=== PATIENT | male | born 1940 ===

== ENCOUNTER → 2025-01-11 11:00 | Outpatient (REF) | payer OTHER, SELFPAY | LOC: HWRAD 11:00 | PROVIDERS: ATTENDING PHYSICIAN Internal Medicine Interventional Cardiology; FAMILY PHYSICIAN Family Medicine | DX: I77.810 Thoracic aortic ectasia (principal) | CPT/HCPCS: 71250 ==

== ENCOUNTER 2025-05-29 06:03 | Day surgery (SDC) | payer OTHER, SELFPAY ==
--- NOTE | 2025-05-10 16:28 | CM ---
Demographics: lives with
Living situation: , one level home
Support Person Post Operatively:
History of
VN: NO
SNF: No
Outpatient: SILVERIO Gutierrez
Has patient purchased required equipment: walker, encouraged patient to review [employer] D[employer] list
PCP: Active
Pharmacy: [facility]
Post Operative Discharge Plan: Outpatient PT
[2025-05-14 14:05] VITALS: BMI 26.6
[2025-05-14 14:37] LABS: Hematocrit 38.9 % (39.0-52.0); Hemoglobin 12.6 g/dL (13.0-18.0); Mean Corp Hgb Conc. 32.4 g/dL (33.0-37.0); Mean Corpuscular Volume 97.0 fL (80.0-94.0); Platelet Count 152 10^3/uL (130-400); Red Cell Dist. Width 14.0 % (11.5-14.5)
[2025-05-14 15:31] LABS: ALT (SGPT) 13 U/L (0-50); AST (SGOT) 24 U/L (17-59); Albumin 4.1 g/dl (3.5-5.0); Alkaline Phosphatase 54 U/L (38-126); Blood Urea Nitrogen 22 mg/dl (9-20); Calcium 8.8 mg/dl (8.4-10.2); Carbon Dioxide 25 mmol/L (22-30); Chloride 110 mmol/L (98-107); Estimated Creatinine Clearance 54 ml/min; Glucose 84 mg/dl (70-99); Potassium 5.2 mmol/L (3.5-5.1); Sodium 142 mmol/L (135-145); Total Protein 6.5 g/dl (6.3-8.2); eGFR > 60.00
[2025-05-14 18:16] VITALS: BMI 26.6
[2025-05-15 11:06] LABS: Glycohemoglobin (HgbA1c) 5.2 % (4.0-5.6)
--- NOTE | 2025-05-27 12:36 | VNURNOTE ---
Chart reviewed. called patient to review [facility] joint protocol. No answer, left message.
[2025-05-29] VITALS (14 sets, daily range): BP systolic 101–180; BP diastolic 53–91; PULSE 59; O2SAT 98
[2025-05-29] MEDS: TYLENOL 650 MG PO (07:18)
[2025-05-29] MEDS: CELEBREX 200 MG PO (07:18)
[2025-05-29] MEDS: NORMOSOL-R/PLASMALYTE-A 1000 IV (07:20)
--- NOTE | 2025-05-29 07:51 | W.DS.TRANS ---
DC Summary - [employer]
-
Discharge Instructions:
Sleep Apnea Risk Intermediate
Discharge Diagnosis/Procedures L HOLLIE Borges 05/29/25-SDS
Diet As tolerated
Activity With Walker
Driving Restrictions No driving
Bathing Restrictions OK to Shower
Other Services PT
Instructions:
Stand-Alone Forms: SDS Total Hip and Knee D/C
Changes to Home Medications: Yes
Discharge Medications:
DC Medications w/original date entered in [facility]
Dr. Robles - Gut,Brain & Sync 1 cap PO QPM 05/13/25
Held on 05/29/25. Instructions: Resume on 06/06/25.
loratadine 10 mg tablet (Claritin) 10 mg PO DAILY Allergies 05/13/25
dexamethasone 4 mg tablet 4 mg PO BID inflammation #6 tabs 05/14/25
famotidine 20 mg tablet 20 mg PO HS GI prophylaxis #30 tabs 05/14/25
gabapentin 300 mg capsule 300 mg PO HS sleep/pain #10 caps 05/14/25
meloxicam 15 mg tablet 15 mg PO DAILY anti-inflammatory #14 tabs 05/14/25
mupirocin 2 % topical ointment 1 applic topical BID infection prevention #1 tube 05/14/25
ondansetron 4 mg disintegrating tablet 4 mg PO Q6H PRN n/v #20 tabs 05/14/25
oxycodone 5 mg tablet 5 mg PO Q6H PRN 1 tab moderate pain, 2 tabs severe pain #30 tabs 05/14/25
acetaminophen 325 mg tablet (Tylenol) 650 mg (2 x 325 mg) PO QID #1 tab 05/29/25
aspirin 325 mg tablet 325 mg PO DAILY blood clot prevention #1 tab 05/29/25
docusate sodium 100 mg capsule (Colace) 100 mg PO BID stool softner #1 cap 05/29/25
losartan 25 mg tablet 25 mg PO DAILY #0 tabs 05/29/25
magnesium hydroxide 400 mg/5 mL oral suspension (Milk of Magnesia) 30 ml PO HS PRN constipation #1 mL 05/29/25
sennosides 8.6 mg tablet (Senokot) 17.2 mg (2 x 8.6 mg) PO BID laxative #2 tabs 05/29/25
Home Medication Changes
dexamethasone 4 mg tablet 4 mg PO BID inflammation #6 tabs 05/14/25
famotidine 20 mg tablet 20 mg PO HS GI prophylaxis #30 tabs 05/14/25
gabapentin 300 mg capsule 300 mg PO HS sleep/pain #10 caps 05/14/25
meloxicam 15 mg tablet 15 mg PO DAILY anti-inflammatory #14 tabs 05/14/25
mupirocin 2 % topical ointment 1 applic topical BID infection prevention #1 tube 05/14/25
ondansetron 4 mg disintegrating tablet 4 mg PO Q6H PRN n/v #20 tabs 05/14/25
oxycodone 5 mg tablet 5 mg PO Q6H PRN 1 tab moderate pain, 2 tabs severe pain #30 tabs 05/14/25
acetaminophen 325 mg tablet (Tylenol) 650 mg (2 x 325 mg) PO QID #1 tab 05/29/25
aspirin 325 mg tablet 325 mg PO DAILY blood clot prevention #1 tab 05/29/25
docusate sodium 100 mg capsule (Colace) 100 mg PO BID stool softner #1 cap 05/29/25
losartan 25 mg tablet 25 mg PO DAILY #0 tabs 05/29/25
magnesium hydroxide 400 mg/5 mL oral suspension (Milk of Magnesia) 30 ml PO HS PRN constipation #1 mL 05/29/25
sennosides 8.6 mg tablet (Senokot) 17.2 mg (2 x 8.6 mg) PO BID laxative #2 tabs 05/29/25
Pending Results: No
[2025-05-29] MEDS: ANCEF 5 IV (12:11)
== END 2025-05-29 13:57 | disposition home or self-care (01) ==
LOC: SDS 06:03
PROVIDERS: ATTENDING PHYSICIAN Orthopaedic Surgery; FAMILY PHYSICIAN Family Medicine; OTHER PHYSICIAN Physician Assistant Medical; REFERRING PHYSICIAN Internal Medicine Interventional Cardiology
DX: M16.12 Unilateral primary osteoarthritis, left hip (principal)
CPT/HCPCS: 27130; C1776; 36415; 73502; 80053; 83036; 85027; 87070; 97116; 97162; C1713

== ENCOUNTER 2025-06-16 01:41 | Emergency (ER) | payer OTHER, SELFPAY ==
[2025-06-16] VITALS (7 sets, daily range): BP systolic 156–187; BP diastolic 75–114; BMI 25.8
[2025-06-16 02:18] LABS: Hematocrit 34.5 % (39.0-52.0); Hemoglobin 11.1 g/dL (13.0-18.0); Mean Corp Hgb Conc. 32.2 g/dL (33.0-37.0); Mean Corpuscular Volume 95.0 fL (80.0-94.0); Nucleated Red Blood Cells % 0 % (-); Platelet Count 229 10^3/uL (130-400); Red Cell Dist. Width 14.1 % (11.5-14.5)
[2025-06-16 02:34] LABS: ALT (SGPT) 22 U/L (0-50); AST (SGOT) 26 U/L (17-59); Albumin 4.1 g/dl (3.5-5.0); Alkaline Phosphatase 74 U/L (38-126); Blood Urea Nitrogen 25 mg/dl (9-20); Calcium 9.3 mg/dl (8.4-10.2); Carbon Dioxide 25 mmol/L (22-30); Chloride 108 mmol/L (98-107); Estimated Creatinine Clearance 63 ml/min; Glucose 95 mg/dl (70-99); Potassium 4.6 mmol/L (3.5-5.1); Sodium 141 mmol/L (135-145); Total Protein 6.7 g/dl (6.3-8.2); eGFR > 60.00
[2025-06-16 02:48] LABS: Troponin I 0.055 ng/ml
--- NOTE | 2025-06-16 04:34 | ED.GENMED ---
History of Present Illness
General
Chief Complaint: Heart Rate Problem
Source: patient and family (Daughter at bedside)
Exam Limitations: none
Time Seen by Provider: 06/16/25 02:57
Nursing documentation reviewed up to this point in time: agreed with
History of Present Illness
History of Present Illness:
The patient is an 84-year-old male who underwent hip replacement surgery approximately two weeks ago. He reports experiencing palpitations and unusual sensations predominantly felt in the back, describing them as �fast and irregular beating.� He
states he feels a intermittent brief thumping sensation primarily in his back, making him jump momentarily. These symptoms are more noticeable when he is lying down and seem to improve upon standing or walking around. The patient has no chest pain
or shortness of breath. He is attending physical therapy and is able to walk. There is no history of diagnosed heart disease or heart attack.
He has history of hypertension, generally well-controlled. He follows with cardiology, Dr. Jarrett.
The patient denies having a cough or fever and reports that his hip feels okay. He denies dizziness nor lightheadedness. Appetite has been good. He also mentions taking pain medication, primarily Tylenol as well as aspirin for the hip. Has not
required narcotic pain medication.
He has had no lower extremity edema.
He is currently asymptomatic.
Past History
Past History
ED Past Medical History: Cancer (Prostate), HTN and Hypercholesterolemia
ED Past Surgical History: Orthopedic and Urological (Prostatectomy)
Social History
Tobacco: Non-smoker
Alcohol: None
Personal:
Living: with family
Employment: Retired
Family History
Family History: Other (Noncontributory)
Phy Exam
Physical Exam
Physical Exam:
GENERAL: 84-year-old gentleman appears his stated age, awake and alert, pleasant, appears in no acute distress. Daughter is accompanying.
EYE: anicteric
NECK: Supple, nontender, no meningismus, no significant adenopathy.
ENT: oral mucosa is moist. No rhinorrhea.
CARDIAC: Regular rate and rhythm. no murmur.
LUNGS: Clear breath sounds bilaterally, no acute respiratory distress, no wheezes/rales/rhonchi
ABDOMEN: Soft, nondistended, without focal tenderness, normoactive BS.
NEUROLOGICAL: Alert and oriented x3, no focal neuro deficits.
SKIN: Warm and dry, normal color, skin intact. No rash.
MUSCULOSKELETAL: No C/C/E. peripheral pulses are full and equal b/l. No palpable tenderness.
PSYCH: Normal and appropriate interaction.
Course
Orders/Labs/Results
Orders:
Orders
06/16/25 01:44
Electrocardiogram (*1) Urgent
Reason for Study: Bradycardia / Tachycardia
06/16/25 01:45
EKG- Treatment ONCE
06/16/25 02:05
Complete Blood Count/With Diff Urgent
Comprehensive Metabolic Panel Urgent
NT-proBNP Urgent
Comment: ADD ON
TSH Reflex To Free T4 Urgent
Troponin I Urgent
06/16/25 02:59
Add On- LAB Urgent
Tests Added?: BNP
06/16/25 03:13
CT Chest PE Study Urgent
Comment:
Reason For Exam: CP/BACK pain, palpitations. THR 2 weeks ago
06/16/25 04:39
PTT Urgent
Troponin I Urgent
06/16/25 06:20
Electrocardiogram (*1) Urgent
Reason for Study: Palpitations
EKG- Treatment ONCE
06/16/25 07:02
Add On- LAB Urgent
Tests Added?: Mg
Furosemide [Lasix] 20 mg PO NOW STA
Metoprolol Xl [Toprol Xl] 12.5 mg PO NOW STA
Abnormal Lab Results
06/16/25 06/16/25
02:05 04:39
RBC 3.63 L 10^6/uL
(4.70-6.10)
Hgb 11.1 L g/dL
(13.0-18.0)
Hct 34.5 L %
(39.0-52.0)
MCV 95.0 H fL
(80.0-94.0)
MCHC 32.2 L g/dL
(33.0-37.0)
Lymphocytes % 19.9 L %
(20.5-51.1)
Eosinophils % 8.1 H %
(0-6)
Chloride 108 H mmol/L
(98-107)
BUN 25 H mg/dl
(9-20)
Troponin I 0.055 H* ng/ml 0.052 H* ng/ml
06/16/25 02:05
06/16/25 02:05
Vital Signs
Initial and Last Documented VS:
Initial Vital Signs
Temp Pulse Resp BP Pulse Ox
98.3 F 75 14 187/114 99
06/16/25 01:47 06/16/25 01:47 06/16/25 01:47 06/16/25 01:47 06/16/25 01:47
Last Documented Vital Signs
Temp Pulse Resp BP Pulse Ox
98.3 F 64 12 165/87 97
06/16/25 01:47 06/16/25 06:37 06/16/25 06:37 06/16/25 06:37 06/16/25 06:37
MDM/Problems Addressed
Differential Diagnosis Includes:
The Differential Diagnosis includes, in no particular order and is not limited to:
1. Atrial flutter or fibrillation
2. Premature atrial contractions
3. Congestive heart failure
4. Pulmonary embolism
5. Myocardial infarction
6. Post-surgical pain syndrome
7. Incomplete left bundle branch block complications
8. Anxiety-induced palpitations
9. Medication-induced palpitations
10. Aortic aneurysm (given thoracic aortic aneurysm history, if verified)
MDM/Problems Addressed:
Intermittent palpitations while lying supine primarily noted in the upper back.
EKG shows normal sinus rhythm with PACs, left bundle branch block, peaked T waves anteriorly. Left bundle branch block, poor R wave anteriorly and peaked T waves similarly noted on previous EKG April 2025. Heart rate has increased from 56 to now 82.
Labs are remarkable for very mild anemia with normal white blood cell count.
Chemistries are unremarkable.
Troponin is minimally elevated 0.055.
BNP and TSH are pending.
Due to recent surgery must consider PE thus we will check PE study. ACS is also a consideration however patient is currently asymptomatic and symptoms have been primarily brief, intermittent palpitations most noted when lying supine. Not all that
consistent with ACS.
Will plan to repeat troponin.
Chronic conditions affecting care: HTN and Other (Hyperlipidemia)
*Radiology
Radiology exam reviewed: radiology read reviewed (CT/PE study is unremarkable. No PE, no consolidation. No aortic dissection nor aneurysm.)
*Pulse Oximetry
SaO2: 96
Oxygen Mode of Delivery: Room air
Patient hypoxic: no
*EKG
Interpreted by ED Provider?: Yes
Comparison EKG: changes noted (PACs are new compared to previous EKG April 2025)
Rate: normal
Rhythm: sinus and PAC's
[place]: left axis deviation
Interval: normal QT interval
QRS Pattern: left bundle branch block
Ischemia: no ischemia
*Check Embosser Interpretation
Rate: normal
Rhythm: sinus and PAC's
*Critical Care Note
Total Time (30-74mins, 75-104mins- exclusive of procedures): Not Applicable
Update Note
Update Note:
Since arrival to the ED patient has had much less episodes of palpitations and upon recheck, no further palpitations.
Monitor shows normal sinus rhythm with resolution of PACs. Heart rate has decreased from 80 to now 60.
CT shows no PE, no dissection, clear lung mireles.
Labs however remarkable for elevated BNP of 5000. Troponin borderline elevated 0.055. Upon recheck has improved to 0.05 to oh. He continues to deny chest pain, has not had chest pain episodes and asymptomatic when he is up and about.
He continues with systolic hypertension in the 150s to 160s. Upon review of records from Dr. Jarrett, cardiac clearance visit April of this year, similar elevated blood pressure with systolic of 160.
He is chronically maintained on losartan 25 mg daily.
Recently completed Decadron, meloxicam and full-strength aspirin postoperatively. He continues to deny abdominal pain.
Case discussed with cardiology, Dr. Cervantes.
She recommends initiation of low-dose metoprolol 12.5 mg, initiation of once daily Lasix 20 mg as well as initiation of low-dose aspirin 81 mg.
Will plan for discharge to home with prompt follow-up with cardiology this week.
Strict return precautions discussed.
ED Attending Note
-
Portions of this chart may have been created with voice recognition software.� Occasional wrong word or��sound alike� substitutions may have occurred due to the inherent limitations of voice recognition software.
Discharge Plan
Departure
Patient Disposition: Home (Routine Discharge)
Date of Disposition: 06/16/25
Time of Disposition: 07:18
Patient with high blood pressure during this ER visit?: No
Condition: Good
Discharge Problem:
Heart palpitations, Atrial premature contractions, Essential hypertension
Instructions: Palpitations (DC)
Prescriptions:
New
metoprolol succinate 25 mg tablet extended release 24 hr
12.5 mg PO DAILY Qty: 30 0RF
furosemide [Lasix] 20 mg tablet
20 mg PO DAILY Qty: 30 0RF
No Action
loratadine [Claritin] 10 mg Tablet
10 mg PO DAILY
Dr. Robles - Gut,Brain & Sync
1 cap PO QPM
mupirocin 2 % ointment
1 applic topical BID Qty: 1 0RF
Patient Comments:
Patient administered this medication @ 04:00 as ordered. Patient started this medication administration on 05/26/25 in the evening.
meloxicam 15 mg tablet
15 mg PO DAILY Qty: 14 0RF
Rx Instructions:
take with food
post-op
famotidine 20 mg tablet
20 mg PO HS Qty: 30 0RF
Rx Instructions:
post-op
dexamethasone 4 mg tablet
4 mg PO BID Qty: 6 0RF
Rx Instructions:
take with food
post-op use only
gabapentin 300 mg capsule
300 mg PO HS Qty: 10 0RF
Rx Instructions:
*POST-OP USE ONLY
ondansetron 4 mg tablet,disintegrating
4 mg PO Q6H PRN (Reason: n/v) Qty: 20 0RF
Rx Instructions:
take 1/2h b/f pain med if recurrent nausea
allow to dissolve in mouth w/o water
oxycodone 5 mg tablet
5 mg PO Q6H PRN (Reason: 1 tab moderate pain, 2 tabs severe pain) Qty: 30 0RF
Rx Instructions:
Ongoing therapy
POST-OP USE ONLY
losartan 25 mg Tablet
25 mg PO DAILY Qty: 0 0RF
Rx Instructions:
HOLD SYSTOLIC BLOOD PRESSURE <130 IF TAKING OXY
sennosides [Senokot] 8.6 mg tablet
17.2 mg PO BID Qty: 2 0RF
acetaminophen [Tylenol] 325 mg tablet
650 mg PO QID Qty: 1 0RF
Rx Instructions:
SCHEDULED DOSING
aspirin 325 mg tablet
325 mg PO DAILY Qty: 1 0RF
Rx Instructions:
Take with food
magnesium hydroxide [Milk of Magnesia] 400 mg/5 mL suspension
30 ml PO HS PRN (Reason: constipation) Qty: 1 0RF
Rx Instructions:
CONTINUE colace W/senokot-if no bowel movement 1 day POST-OP -add milk of mag
docusate sodium [Colace] 100 mg capsule
100 mg PO BID Qty: 1 0RF
Referrals:
Reggie Jarrett MD [Active, Cardiology] - Follow up in 2-3 days
Román Costello DO [Family Provider, Family Practice]
Activity Restrictions/Additional Instructions:
Start a low-dose, 81 mg aspirin daily.
You have also been prescribed metoprolol succinate 12.5 mg or 1/2 tablet daily along with Lasix/furosemide 20 mg once daily.
Follow-up with Dr. Jarrett this week for recheck.
Interventions
Interventions:
*Risk Screen - Suicide Last Done: 06/16/25 01:47
*General Assessment Last Done: 06/16/25 01:47
*Neglect/Abuse Screening Last Done: 06/16/25 01:47
*ED- Fall Risk Assessment Last Done: 06/16/25 01:58
*ED COVID-19 Vaccine History Last Done: 06/16/25 01:58
ED- Cardiac Assessment Last Done: 06/16/25 01:58
ED- Pulmonary Assessment Last Done: 06/16/25 01:58
Discharge Date and Time
Print Language: MOHAWK
[2025-06-16 05:05] LABS: APTT 30.4 Sec (23.4-35.0)
[2025-06-16 05:17] LABS: Troponin I 0.052 ng/ml
--- NOTE | 2025-06-16 07:05 | EDRN ---
Dr. Man in room w/ pt at this time
[2025-06-16] MEDS: LASIX 20 MG PO (07:18)
[2025-06-16] MEDS: TOPROL XL 12.5 MG PO (07:18)
[2025-06-16 07:48] LABS: Magnesium 2.1 mg/dl (1.6-2.3)
== END 2025-06-16 07:25 | disposition home or self-care (01) ==
LOC: EMR 01:41
PROVIDERS: EMERGENCY PHYSICIAN Emergency Medicine; FAMILY PHYSICIAN Family Medicine
DX: R00.2 Palpitations (principal); I49.1 Atrial premature depolarization; I44.7 Left bundle-branch block, unspecified; D64.9 Anemia, unspecified; I10 Essential (primary) hypertension; E78.00 Pure hypercholesterolemia, unspecified; Z79.82 Long term (current) use of aspirin; Z96.642 Presence of left artificial hip joint; Z85.46 Personal history of malignant neoplasm of prostate; Z90.79 Acquired absence of other genital organ(s)
CPT/HCPCS: 99284; 71275; 80053; 83735; 83880; 84443; 84484; 85025; 85730; 93005; Q9967

== ENCOUNTER 2025-07-01 16:12 | Emergency (ER) | payer OTHER, SELFPAY ==
[2025-07-01 16:15] VITALS: BP 181/106
[2025-07-01 16:49] VITALS: BMI 27.3
--- NOTE | 2025-07-01 17:00 | ED.GENMED ---
History of Present Illness
General
Chief Complaint: Bowel Problem
Source: patient
Time Seen by Provider: 07/01/25 16:46
History of Present Illness
History of Present Illness:
This patient is a very pleasant 84-year-old male presents emergency department with concerns that he is not evacuating his bowels completely. Patient is status post hip replacement approximately a month ago for which he has been recovering well and
reports being able to walk to the ER from the parking lot with ease. He was seen here in the emergency department recently with complaints of palpitations, workup was essentially unremarkable and there was some medication changes that were
recommended. He has been feeling well ever since. He states that he is having bowel movements but it seems that it is just not enough. He said he had not had a bowel in approximately 5 days, and then he had a normal bowel movement this morning
without black stool or blood. However, he still feels like there is more there. He took MiraLAX and Senokot this morning without relief of symptoms. He did have mild lower discomfort just before the bowel movement this morning, otherwise no
abdominal pain, nausea, vomiting, fever, chills, anorexia, chest pain, shortness of breath, new back pain, or other complaints.
Past History
Past History
ED Past Medical History: Cancer (Prostate), HTN and Hypercholesterolemia
ED Past Surgical History: Orthopedic and Urological (Prostatectomy)
Social History
Tobacco: Non-smoker
Alcohol: None
Drug: None
Personal:
Living: with family
Employment: Retired
Family History
Family History: Other (Noncontributory)
Phy Exam
Physical Exam
Physical Exam:
GENERAL: Alert , in no apparent distress
EYE: pupils equal and reactive
NECK: Supple, no significant adenopathy.
ENT: o/p clr, mmm.
CARDIAC: Regular rate and rhythm .
LUNGS: Clear breath sounds bilaterally, no acute respiratory distress, no wheezes/rales/rhonchi
ABDOMEN: Soft, without focal tenderness, no r/g, no cvat, normal active bowel sounds
NEUROLOGICAL: Alert and oriented, no focal neuro deficits
SKIN: Warm and dry, skin intact.
MUSCULOSKELETAL: No edema, well perfused.
PSYCH: Normal and appropriate interaction.
Rectal nontender, no gross blood, no stool noted tech present during exam
Course
Orders/Labs/Results
Orders:
Orders
07/01/25 17:05
Obstruct Series W/PA Chest [CR Obstruct Series W/pa Chest] Urgent
Comment:
Reason For Exam: constipation/discomfort
Vital Signs
Initial and Last Documented VS:
Initial Vital Signs
Temp Pulse Resp BP Pulse Ox
97.7 F 59 18 181/106 99
07/01/25 16:15 07/01/25 16:15 07/01/25 16:15 07/01/25 16:15 07/01/25 16:15
Last Documented Vital Signs
Temp Pulse Resp BP Pulse Ox
97.7 F 65 18 150/76 96
07/01/25 16:15 07/01/25 18:09 07/01/25 18:09 07/01/25 18:09 07/01/25 18:09
*Pulse Oximetry
SaO2: 99
Oxygen Mode of Delivery: Room air
Patient hypoxic: no
*Critical Care Note
Total Time (30-74mins, 75-104mins- exclusive of procedures): Not Applicable
Update Note
Update Note:
Patient presents to the Emergency Department with __feeling of incompletely evacuating bowels
Number and Complexity of Problems Addressed at the Encounter
� Chronic conditions affecting care:
� Acute Exacerbation and/or Progression of Chronic Illness:
� Differential Diagnosis includes: But not limited to functional constipation, bowel obstruction, ileus, etc.
Amount and/or Complexity of Data to be Reviewed and Analyzed
� I performed an independent evaluation of and my interpretation is:
EKG:
CT:
Xrays: Moderate stool, no free air, no obstruction
Laboratory Studies:
Other:
� Review of other/old records reveals:
� Clinical information was obtained by an independent historian:
� Prescriptions/Medications Considered but not given:
� Further testing considered but not performed:
Risk of Complications and/or Morbidity or Mortality of Patient Management
� Social determinants of health affecting care:
� Discussion with other providers (PCP, Hospitalists, Consultants, etc):
� Escalation of care including admission/observation vs risk of discharge considered: Patient comfortable, abdomen soft and nontender, no vomiting. Moderate amount of constipation noted. Discussed with patient plan to take 150
mL of mag citrate tomorrow with 8 ounces of water. Consideration to take MiraLAX each day ongoing to stay regular. Discussed with him importance of follow-up and reasons to return to the ER. Does not present with signs or symptoms to suggest
acute abdominal process.
ED Attending Note
-
Portions of this chart may have been created with voice recognition software.� Occasional wrong word or��sound alike� substitutions may have occurred due to the inherent limitations of voice recognition software.
Discharge Plan
Departure
Patient Disposition: Home (Routine Discharge)
Date of Disposition: 07/01/25
Time of Disposition: 19:33
Patient with high blood pressure during this ER visit?: Yes
Condition: Good
Discharge Problem:
Constipation
Instructions: Constipation, Adult (DC), BLOOD PRESSURE
Prescriptions:
No Action
loratadine [Claritin] 10 mg Tablet
10 mg PO DAILY
Dr. Robles - Gut,Brain & Sync
1 cap PO QPM
mupirocin 2 % ointment
1 applic topical BID Qty: 1 0RF
Patient Comments:
Patient administered this medication @ 04:00 as ordered. Patient started this medication administration on 05/26/25 in the evening.
meloxicam 15 mg tablet
15 mg PO DAILY Qty: 14 0RF
Rx Instructions:
take with food
post-op
famotidine 20 mg tablet
20 mg PO HS Qty: 30 0RF
Rx Instructions:
post-op
dexamethasone 4 mg tablet
4 mg PO BID Qty: 6 0RF
Rx Instructions:
take with food
post-op use only
gabapentin 300 mg capsule
300 mg PO HS Qty: 10 0RF
Rx Instructions:
*POST-OP USE ONLY
ondansetron 4 mg tablet,disintegrating
4 mg PO Q6H PRN (Reason: n/v) Qty: 20 0RF
Rx Instructions:
take 1/2h b/f pain med if recurrent nausea
allow to dissolve in mouth w/o water
oxycodone 5 mg tablet
5 mg PO Q6H PRN (Reason: 1 tab moderate pain, 2 tabs severe pain) Qty: 30 0RF
Rx Instructions:
Ongoing therapy
POST-OP USE ONLY
losartan 25 mg Tablet
25 mg PO DAILY Qty: 0 0RF
Rx Instructions:
HOLD SYSTOLIC BLOOD PRESSURE <130 IF TAKING OXY
sennosides [Senokot] 8.6 mg tablet
17.2 mg PO BID Qty: 2 0RF
acetaminophen [Tylenol] 325 mg tablet
650 mg PO QID Qty: 1 0RF
Rx Instructions:
SCHEDULED DOSING
aspirin 325 mg tablet
325 mg PO DAILY Qty: 1 0RF
Rx Instructions:
Take with food
magnesium hydroxide [Milk of Magnesia] 400 mg/5 mL suspension
30 ml PO HS PRN (Reason: constipation) Qty: 1 0RF
Rx Instructions:
CONTINUE colace W/senokot-if no bowel movement 1 day POST-OP -add milk of mag
docusate sodium [Colace] 100 mg capsule
100 mg PO BID Qty: 1 0RF
metoprolol succinate 25 mg tablet extended release 24 hr
12.5 mg PO DAILY Qty: 30 0RF
furosemide [Lasix] 20 mg tablet
20 mg PO DAILY Qty: 30 0RF
Referrals:
NONE,* [Active, Internal Medicine]
Activity Restrictions/Additional Instructions:
PLEASE FOLLOW UP WITH YOUR DOCTOR THIS WEEK. TAKE 1/2 OF THE BOTTLE OF MAGNESIUM CITRATE WITH 8 OUNCES OF WATER. YOU CAN CONSIDER TAKING MIRALAX EACH MORNING TO HELP KEEP YOUR BOWEL MOVEMENTS REGULAR. IF YOU DEVELOP ABDOMINAL PAIN, BLEEDING/BLACK
STOOL, VOMITING, FEVER, OR OTHER WORRISOME SIGNS, GO TO THE ER IMMEDIATELY!
Interventions
Interventions:
*Risk Screen - Suicide Last Done: 07/01/25 17:24
*General Assessment Last Done: 07/01/25 17:24
*Neglect/Abuse Screening Last Done: 07/01/25 17:24
*ED- Fall Risk Assessment Last Done: 07/01/25 17:24
*ED COVID-19 Vaccine History Last Done: 07/01/25 17:24
*ED Influenza Vaccine History Last Done: 07/01/25 17:24
FR-[id number]-[id number] Assessment Last Done: 07/01/25 17:15
Discharge Date and Time
Print Language: HUNGARIAN
[2025-07-01 18:09] VITALS: BP 150/76
[2025-07-01] MEDS: CITROMA 300 ML PO (19:41)
== END 2025-07-01 19:43 | disposition home or self-care (01) ==
LOC: EMR 16:12
PROVIDERS: EMERGENCY PHYSICIAN Emergency Medicine; FAMILY PHYSICIAN Family Medicine
DX: K59.00 Constipation, unspecified (principal); I10 Essential (primary) hypertension; E78.00 Pure hypercholesterolemia, unspecified; Z85.46 Personal history of malignant neoplasm of prostate; Z90.79 Acquired absence of other genital organ(s); Z96.649 Presence of unspecified artificial hip joint
CPT/HCPCS: 99283; 74022